=== PATIENT | male | born 1965 | race Caucasian/White ===

== ENCOUNTER 2017-03-30 15:59 | Emergency (ER) | payer SELFPAY ==
[2017-03-30] MEDS ORDERED: LET GEL TOPICAL 1 EA SYR TP ONE (16:04)
[2017-03-30] MEDS ORDERED: HYDROCODONE/APAP 5/325 TAB PO ONE (16:05)
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
[2017-03-30 16:13] VITALS: RESP 18; TEMP 98.6
[2017-03-30] MEDS ORDERED: ONDANSETRON DISINTEGRATING 4 MG TAB ONE (16:18)
[2017-03-30] MEDS ORDERED: ONDANSETRON DISINTEGRATING 4 MG TAB PO ONE (16:22)
[2017-03-30] MEDS ORDERED: OXYCODONE/APAP 5/325MG PREPACK#4 BTL TAKEHOME ONE (18:21)
[2017-03-30] MEDS ORDERED: BACITRACIN OINTMENT 1 PACKET TP ONE (18:27)
[2017-03-30 18:42] VITALS: BP 130/85; PULSE 78; O2SAT 97
== END 2017-03-30 18:42 | disposition home or self-care (01) ==
PROC: 0CQ0XZZ Repair Upper Lip, External Approach (ICD-10-PCS; principal; 2017-03-30)
DX: S42.021A Displaced fracture of shaft of right clavicle, initial encounter for closed fracture (principal); S01.511A Laceration without foreign body of lip, initial encounter; S20.211A Contusion of right front wall of thorax, initial encounter; V18.4XXA Pedal cycle driver injured in noncollision transport accident in traffic accident, initial encounter; Y92.410 Unspecified street and highway as the place of occurrence of the external cause; Y99.8 Other external cause status; Y93.55 Activity, bike riding
CPT/HCPCS: A4565